=== PATIENT | female | born 1980 | race Caucasian/White ===

== ENCOUNTER 2020-06-09 07:14 | Inpatient (IN) | payer OTHER, SELFPAY ==
[2020-06-02 09:31] VITALS: BMI 35.4
[2020-06-09] VITALS (11 sets, daily range): BP systolic 124–149; BP diastolic 63–95; PULSE 74–99; RESP 9–18; TEMP 36.1–37.3; O2SAT 89–98; BMI 34.7
--- NOTE | 2020-06-09 | DI.RAD.S_ITS ---
PROCEDURE: XR CERVICAL SPINE 2V OR 3V INDICATIONS: ACDF C5-6 C6-7 TECHNIQUE: 3 views of the cervical spine were acquired. COMPARISON: Outside Film, MR, MR CERVICAL SPINE WITHOUT CONTRAST, 04/08/2020, 8:39. FINDINGS: Bones: Intraoperative spot images demonstrate anterior cervical fixation hardware at the C5 through C7 levels. Soft tissues: No prevertebral soft tissue swelling. An endotracheal tube is partially imaged. IMPRESSION: Intraoperative images demonstrate cervical fixation hardware at the C5 through C7 levels. Dictated by: Jerman Lobo M.D. on 06/09/2020 at 12:06 Approved by: Jerman Lobo M.D. on 06/09/2020 at 12:08
[2020-06-09] MEDS: ACETAMINOPHEN 325 MG TABLET 975 MG PO (08:09)
[2020-06-09] MEDS: SCOPOLAMINE 1 PATCH TOP (08:10)
[2020-06-09] MEDS: LACTATED RINGERS 1,000 ML 42 ML IV ×2 (08:18→10:44)
[2020-06-09] MEDS: CEFAZOLIN 2 GM/100 ML FROZ.PIGGY IV ×2 (08:55→17:17)
--- NOTE | 2020-06-09 09:30 | SUR.OPER ---
Supine, head on gel donut. Arms padded with gel pads, tucked at sides, towel roll under shoulders. Safety belt at thigh. Legs uncrossed.
--- NOTE | 2020-06-09 11:38 | P.OP_ITS ---
Operative Date/Time/Diagnoses Date of procedure: 06/09/20 Time of procedure: 08:38 Pre-op diagnosis: 1. C5-6, C6-7 spinal stenosis with radiculopathy 2. C5-6, C6-7 with spondylosis and radiculopathy Post-op diagnosis: same Procedure & Clinicians Procedure: 1. C5-6 C6-7 anterior cervical diskectomy and fusion 2. C5-6 C6-7 anterior interbody cage placement 3. C5-6 C6-7 anterior instrumentation with plate and screw placement in C5-C6 and C7 vertebrae 4. Utilization of microsurgical technique and operating microscope Same procedure as scheduled: Yes Indications: Patient has been having chronic neck pain and worsening cervical radiculopathy. Patient failed multiple conservative management with worsening pain weakness and numbness in her upper extremity. Patient has been having difficulty performing activity of daily living. After discussing risks benefits of treatment options, patient elected proceed with surgery. Surgeon: Bharati Vincent Paring Machine Operator: Ramonita Turner Click Yes if Unassisted: No Anesthesia Type: General Operative Notes Closure Type: primary Specimen(s): none sent Prosthetic devices, grafts, tissues, transplants, or devices: Globus Extend Plate, PEEK cages Estimated Blood Loss (mL): 50 Blood products transfused: none Procedure in detail: Patient was seen in the preoperative area. Risks and benefits of the surgery was discussed with the patient. Operative consent was obtained and placed in the chart. Patient was then taken to the operative room. Prophylactic antibiotic was given less than 0.5 hr prior to skin incision. General anesthesia was administered. Patient was placed into a supine position on her radiolucent table. Bilateral shoulders were taped down to allow proper C- arm imaging. Anterior cervical area was prepped and draped in a sterile fashion. Time-out was performed at this time. Using lateral C-arm imaging, the level between C5 and C7 was identified and marked on patient's neck. A oblique incision from midline towards medial border of sternocleidomastoid muscle was made. The platysma muscle was incised in line with skin incision. Metzenbaum scissor was used to develop the plane between the medial border of sternocleidomastoid d and the strap muscles medially. The cabrales tid sheath and its contents were identified and protected behind the hand-held retractor during the entire case. The plane between the carotid sheath and strap muscles was developed with Metzenbaum scissors. Dissection was made down to the level of the anterior cervical fascia. Longus colli muscle was incised on the anterior aspect of vertebral bodies bilaterally from C5-C7. Spinal needle was placed into the C5-6 disc space and confirmed with lateral C-arm imaging. Using microsurgical technique and operative microscope, anterior cervical diskectomy was performed at C5-6 and C6-7 level. This was done by removing the disc material, removing the anterior and posterior osteophytes posterior longitudinal ligaments along with performing bilateral foraminotomies at both levels. Patient was found to have severe central and foraminal stenosis at both levels. Patient's stenosis was fully decompressed after decompression was completed. There was extruded disc fragments at both levels on the right side into the neural foramen. The fragments was removed using the pituitary micro curette. After dissecting this completed the neural foramen was palpated and no other impinging structure was identified. After the diskectomy was completed, 2 anterior interbody cages were obtained. The cages were packed with DBM bone grafting material. One cage each along with the bone grafting material was then packed into the interbody spaces from C5-C7 with one cage into each interbody level. After the cages were placed, the anterior cervical plate was stabilized to the C5-C7 vertebrae using 2 screws at each each level. Total 6 screws were placed. After confirming placement of the hardware with AP and lateral C-arm imaging, the screws were locked into the plate using the locking mechanism and torque limiting screwdriver. After the hardware was placed and confirmed with AP and lateral C-arm imaging, the wound was irrigated with sterile normal saline. The platysma muscle and the subcutaneous tissue was closed with 2-0 Vicryl. The skin was closed with 4-0 Monocryl and Steri-Strips. Patient tolerated the procedure well. Patient was transferred recovery room in stable condition. There were no complications. Complications: none Post-operative Condition: stable Disposition: PACU Plan for aftercare: Admit to inpatient hospital
[2020-06-09] MEDS: OXYCODONE IR 5 MG TABLET PO (12:04)
[2020-06-09] MEDS: hydrOXYzine pamoate 25 MG CAPSULE PO (13:21)
[2020-06-09] MEDS: SODIUM CHLORIDE 0.9% 1,000 ML 100 ML IV (13:22)
--- NOTE | 2020-06-09 14:10 | PC.NURSE ---
Pt to room via bed from PACU - Pt is awake alert and oriented x 3. States she has a sore throat but is having no difficulty swallowing. Pt given a popsicle and ice chips and advanced to eating custard during admission process. Pt oriented to room, call light, tv controls and bed controls. Pt bed alarm on, IV infusing, and scd's on and running. Pt agrees to not get up without assistance. Pt denies needs at this time and agrees to call for assistance as needed.
--- NOTE | 2020-06-09 15:00 | PT.IIE ---
Current Diagnoses Other spondylosis with radiculopathy, cervical region (06/09/20) Spinal stenosis, cervical region (06/09/20) Surgery Performed Operation Date: 06/09/20 08:45 Actual Procedures p C5-6,C6-7 ACDF with anterior instrumentation - Bharati Vincent MD Surgical History (Last Updated 06/02/20 @ 10:10 by Carina Mcguire RN) History of carpal tunnel release of both wrists (Acute 04/2020) History of surgery (Acute 01/2019) Hx of section (Acute) Medical History (Last Updated 06/02/20 @ 10:10 by Carina Mcguire RN) Anxiety (Acute) Arthritis (Acute) Depression (Acute) Low back pain (Acute) Neck pain (Acute) Physical Therapy Inpatient Evaluation/Re-Eval M1 PT/OT-IP Prior Functional Status Start: 06/09/20 14:53 Freq: NEEDED Status: Active Protocol: Document 06/09/20 15:00 AB (Rec: 06/09/20 15:38 AB [id number]) Medical Review Prior Functional Status Medical History Reviewed Yes Communication able to make needs known Mobility and Gait stated that she is independent with all mobilities and ambulation without AD Social History Household Members spouse,children Living Arrangements House Number of Floors (Floors) 3 or More Floors Number of Stairs To Enter/Railing? 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 [id number]) Medical Review Prior Functional Status Medical History Reviewed Yes Communication Independent. Mobility and Gait Independent with no devices. Activities of Daily Living and IADL's Completely independent with no devices. Pt states due to her right UE athrophy of biceps/ triceps was harder to do IADl needs, even pushing a shopping hard was hard for her as her right arm would tire. Prior Functional Level (Other details) Pt's to take the week off to assist, pt has 3 boys 9 ,12, and 14 years old. Social History Household Members spouse,children Living Arrangements House Number of Floors (Floors) 3 or More Floors Number of Stairs To Enter/Railing? 1 step from the garage and no rails to enter the main level of kitchen and living room. Pt 's bedroom is up 2 flights of steps and right hand rails going up. Pt states is able to slepp on the couch on the main level if needed and also the recliner can be brought down to the main living area if needed. Home Environment Standard Height Toilet,Walk in Shower Home Equipment Hand Held Shower M2 PT-IP Current Condition Start: 06/09/20 14:53 Freq: NEEDED Status: Active Protocol: Document 06/09/20 15:00 AB (Rec: 06/09/20 15:38 AB [id number]) Physical Therapy Current Condition Current Condition Evaluation Date 06/09/20 Treatment Diagnosis s/p C5-6 C6-7 ACDF; difficulty in walking Onset Date 06/09/20 Precautions Cervical Spine Precautions Soft Collar for Comfort,No Heavy Lifting,Log Roll M3 PT-IP Subjective Start: 06/09/20 14:53 Freq: NEEDED Status: Active Protocol: Document 06/09/20 15:00 AB (Rec: 06/09/20 15:38 AB [email or web address]) Subjective Physical Therapy Visit Type Type Initial Evaluation Visit Start Time 15:00 Visit Stop Time 15:28 Total Visit Minutes 28 Number of RISK OFFICER Visits 0 Physical Therapy Visit Comments Patient Comments pt is agreeable to do PT Therapy Pain Assessment Pain Present Pain Present Denied Pain M4 PT-IP Mobility and Gait Start: 06/09/20 14:53 Freq: NEEDED Status: Active Protocol: Document 06/09/20 15:00 AB (Rec: 06/09/20 15:38 AB [id number]) PT-Bed Mobility Assessment Rolling Type of Rolling Log Rolling Level of Assist Standby Assistance Supine to Sit Supine to Sit Standby Assistance Sit to Supine Sit to Supine Standby Assistance Scooting Scooting to Edge of Bed Standby Assistance PT-Transfer Assessment Sit to and From Stand Sit to and from Stand Standby Assistance Equipment Transfer Assistive Device None,Gait Belt Orthotic/Prosthetic Devices or Brace: Yes Transfers Transfer Destination Bed,Chair Transfer Technique ambulated without AD Transfer Ability Level of Assist Standby Assistance Comments Mobility Comments reviewed cervical precautions and log roll bed mobility with pt. pt completed sit to stand from chair SBA and transferred to bed without AD SBA. completed bed mobility SBA. ambulated in room without AD ~ 30 ft SBA. pt sat back on the chair. positioned on chair. call light and table placed within reach. Gait Assessment Gait Gait Assistance Required: Standby Assistance Distance (Feet) 30 Able to Maintain Weight Bearing Status Yes During Gait Assistive Devices Assistive Device Gait Belt,Front Wheeled Walker Orthotic/Prosthetic Devices or Brace: No Factors Limiting Gait Function Factors Limiting Gait Function Decreased Activity Tolerance, Limited Range of Motion PT-Balance Assessment Sitting Balance and Reactions Static Sitting Balance Ability Normal Dynamic Sitting Balance Ability Normal Standing Balance and Reactions Static Standing Balance Ability Good Dynamic Standing Balance Ability Good Device Used without AD M5 PT-IP Objective Assessments Start: 06/09/20 14:53 Freq: NEEDED Status: Active Protocol: Document 06/09/20 15:00 AB (Rec: 06/09/20 15:38 [email or web address]) Orientation Orientation/Cognition Level of Alertness Alert Orientation Name,Age,Birthday,Month,Date, Year,Day of Week,Place, Situation Language Function Ability No Deficits Noted Safety Awareness Understands Safety Issues Memory Description No Deficits Noted Gross Range of Motion Lower Extremity ROM Assessment Within Functional Limits Strength Lower Extremity Strength Assessment Within Functional Limits Coordination Assessment Gross Coordination Gross Coordination WNL Muscle Tone Muscle Tone WNL Yes M6 PT-IP Treatment Start: 06/09/20 14:53 Freq: NEEDED Status: Active Protocol: Document 06/09/20 15:00 AB (Rec: 06/09/20 15:38 [email or web address]) Physical Therapy Treatment Education Education Provided Precautions,Safety M7 PT-IP Assessment and Plan Start: 06/09/20 14:53 Freq: NEEDED Status: Active Protocol: Document 06/09/20 15:00 AB (Rec: 06/09/20 15:38 [email or web address]) PT Summary Assessment and Plan Potential Rehabilitation Potential Good Status of Condition at Evaluation Stable Summary Impairments Pain,Balance,Bed Mobility, Transfers,Gait,Activity Tolerance Assessment Summary pt s/p ACDF and just had surgery this morning. pt requiring SBA with mobility and plans to go home with spouse to assist her. will conduct stair climbing training prior to d/c. pt may go home when medically stable . Goals Bed Mobility Goal Independent Transfer Goal Independent Gait Goal Independent Gait Distance 300 Other Goals up/down 12 step R rail ascending Frequency of Treatment Frequency Of Treatment Twice a Day Treatment Plan Physical Therapy Treatment Plan Bed Mobility Training,Transfer Training,Gait Training, Therapeutic Exercise,Balance Retraining,Post Op Education, Discharge Planning,Hot or Cold Pack,Neuromuscular Re-ed, Coordination Retraining,Manual Therapy Recommendations To Nursing Amount of Assist Needed Standby Assistance Discharge Recommendations PT Discharge Recommendations Home with Assistance Transportation Needs at Discharge Private Vehicle
--- NOTE | 2020-06-09 15:16 | OT.IP.EVAL ---
Current Diagnoses Other spondylosis with radiculopathy, cervical region (06/09/20) Spinal stenosis, cervical region (06/09/20) Surgery Performed Operation Date: 06/09/20 08:45 Actual Procedures p C5-6,C6-7 ACDF with anterior instrumentation - Bharati Vincent MD Past Medical History (Last Updated 06/02/20 @ 10:10 by Carina Mcguire RN) Anxiety (Acute) Arthritis (Acute) Depression (Acute) Low back pain (Acute) Neck pain (Acute) Surgical History (Last Updated 06/02/20 @ 10:10 by Carina Mcguire RN) History of carpal tunnel release of both wrists (Acute 04/2020) History of surgery (Acute 01/2019) Hx of section (Acute) Occupational Therapy Inpatient Evaluation/Re-Eval sunday and then back to work M1 PT/OT-IP Prior Functional Status Start: 06/09/20 15:19 Freq: NEEDED Status: Active Protocol: Document 06/09/20 15:19 CCC (Rec: 06/09/20 15:37 [facility] [email or web address]) Medical Review Prior Functional Status Medical History Reviewed Yes Communication Independent. Mobility and Gait Independent with no devices. Activities of Daily Living and IADL's Completely independent with no devices. Pt states due to her right UE athrophy of biceps/ triceps was harder to do IADl needs, even pushing a shopping hard was hard for her as her right arm would tire. Prior Functional Level (Other details) Pt's to take the week off to assist, pt has 3 boys 9 ,12, and 14 years old. Social History Household Members spouse,children Living Arrangements House Number of Floors (Floors) 3 or More Floors Number of Stairs To Enter/Railing? 1 step from the garage and no rails to enter the main level of kitchen and living room. Pt 's bedroom is up 2 flights of steps and right hand rails going up. Pt states is able to sleep on the couch on the main level if needed and also the recliner can be brought down to the main living area if needed. Home Environment Standard Height Toilet,Walk in Shower Home Equipment Hand Held Shower M2 OT-IP Current Condition Start: 06/09/20 15:19 Freq: Status: Active Protocol: Document 06/09/20 15:19 CCC (Rec: 10/21/20 15:37 [facility] [email or web address]) Occupational Therapy Current Condition Current Condition Evaluation Date 06/09/20 Treatment Diagnosis S/P C5-6, C6-7 ACDF Post Operative Precautions Cervical Spine Precautions Soft Collar for Comfort,No Heavy Lifting,Log Roll M3 OT- IP Subjective and Pain Start: 06/09/20 15:19 Freq: Status: Active Protocol: Document 06/09/20 15:19 [facility] (Rec: 06/09/20 15:37 [facility] [email or web address]) OT- Subjective Occupational Therapy Visit Type Type Initial Evaluation Visit Start Time 14:28 Visit Stop Time 15:16 Total Visit Minutes 48 Occupational Therapy Visit Comments Patient Comments Pt agreed to get up and pt's present for OT eval. Patient/Caregiver Goals TO go home. OT Pain Assessment Pain When Pain Assessed At Rest Pain Present Pain Present Pain Reported Location Anterior Neck Intensity 6 Scale Used Numeric (0 - 10) M4 OT- IP ADL's Start: 06/09/20 15:19 Freq: Status: Active Protocol: Document 06/09/20 15:19 [facility] (Rec: 06/09/20 15:37 [facility] [id number]) OT [id number] Comments OT Self-Feeding Comments Not at meal time, able to go over swallowing information and positioning needs after ACDF. Encouraged pt to eat softer food initially, cold food can be helpful, and be sure to sit upright and chew her food thoroughly. OT ADL-Grooming General Evaluation Areas Needing Assistance Retrieving/Set-up of Grooming Items OT ADL-Oral Care General Eval Oral Care Ability Standby Assistance Areas of Assistance Retrieving/Set-Up of Items Comments Oral Care Comments VC to lean at her hips to spit into the sink of just spit in to a cup to best follow her cervical precautions. OT ADL-Dressing General Eval Lower Body Dressing Ability Standby Assistance Areas Needing Assistance Retrieving/Set-up of Clothing Comments OT Dressing Comments Pt able to safely devonte underwear and socks by crossing her legs over without excessive movement of her head. OT ADL-Toileting Comments OT Toileting Comments Pt able to demonstrate being able to wipe appropriately. Suggested may be helpful to ear pads at night. OT ADL-Bathing Comments OT Bathing Comments To try tomorrow. Pt has a built in seat in her shower but mainly uses in to shave her legs with her foot prompt up on the built in seat. M5 OT- IP IADL's Start: 06/09/20 15:19 Freq: Status: Active Protocol: Document 06/09/20 15:19 [facility] (Rec: 06/09/20 15:37 [facility] [email or web address]) OT-Instrumental Activities of Daily Living Home Safety Awareness Awareness of Need for Assistance at Home Good Awareness Ability to Problem Solve Emergency Able to Problem Solve Situations Medication Management Medication Management No Deficits Identified Money Management Money Management No Deficits Identified Meal Preparation Meal Preparation Comments Pt's and kids to assist as needed. 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 M6 OT- IP Functional Cognition Start: 06/09/20 15:19 Freq: Status: Active Protocol: Document 06/09/20 15:19 [facility] (Rec: 06/09/20 15:37 [facility] [email or web address]) Cognitive Factors Limiting Selfcare Function Cognitive Ability Level of Alertness Alert Patient Orientation Name,Age,Birthday,Month,Date, Year,Day of Week,Place, Situation Attention Span Ability Capable of Focused Attention, Capable of Sustained Attention Ability to Follow Commands Able to Follow Multi-Step Commands Memory Description No Deficits Noted Safety Awareness No Deficits Noted Problem Solving Ability No deficits Noted Cognitive Comments Cognitive Assessment Comments NO cognitive deficits noted at this time. OT- Vision and Hearing OT- Hearing Assessment OT- Hearing Assessment WFL OT- Vision Assessment Visual Acuity WFL,Glasses For Reading M7 OT- IP Mobility and Balance Start: 06/09/20 15:19 Freq: Status: Active Protocol: Document 06/09/20 15:19 [facility] (Rec: 06/09/20 15:37 [facility] [email or web address]) OT- Bed Mobility Assessment Rolling Type of Rolling Roll to Right Supine to Sit Supine to Sit Assist Contact Guard Assistance,1 Person Assistance OT-Transfer Assessment Sit to and From Stand Sit to and from Stand Contact Guard Assistance Transfers Transfer Ability Standby Assistance,Contact Guard Assistance Technique Transfer Destination Bed,Chair,Toilet Transfer Technique Stand Step Pivot Devices Transfer Assistive Devices None,Gait Belt Comments Mobility Comments CGA assist and after initial education for log rolling to get up to the edge of the bed. CGA to stand and eventually pt able to walk from the bathroom to the recliner with SBA and no device used. Did still recommend pt still use the call light to ask for assistance as just had surgery this morning. OT- Gait Assessment Gait Gait Assistance Required: Standby Assistance,Contact Guard Assist Comments Gait Ability Comments CGA to SBA with gait belt. OT- Balance Assessment Sitting Balance and Reactions Static Sitting Balance Ability Normal Dynamic Sitting Balance Ability Normal Standing Balance and Reactions Static Standing Balance Ability Normal M8 OT- IP Objective Assessments Start: 06/09/20 15:19 Freq: Status: Active Protocol: Document 06/09/20 15:19 [facility] (Rec: 06/09/20 15:37 [facility] [email or web address]) OT Gross Range of Motion Upper Extremity Range of Motion Assessment Within Functional Limits OT Strength Upper Extremity Strength Assessment Right Impaired OT-Muscle Tone Assessment Muscle Tone WNL Yes M9 OT- IP Assessment and Plan Start: 06/09/20 15:19 Freq: Status: Active Protocol: Document 06/09/20 15:19 [facility] (Rec: 06/09/20 15:37 [facility] [email or web address]) OT Summary Assessment and Plan Potential Rehabilitation Potential Excellent Analytic Complexity at Evaluation Low Summary OT Impairments Functional Mobility,Dressing, Toileting,Bathing Progress Towards Goals Progressing Toward Goals Assessment Summary Pt low complexity and main barriers are multiple steps at home, pain , and now needing one person assist for Adl and mobility needs. Pt has a supportive and has the option to sleep downstairs on the main level if needed. Pt looking to go home with medically stable. OT to go over shower and dressing tomorrow with pt and . Goals Grooming Goal Independent Dressing Goal Independent Toileting Goal Independent Bathing Goal Independent Toilet Transfer Goal Independent Shower Transfer Goal Independent Patient/Caregiver Education Goal Caregiver Independent Assisting Patient Days to Meet Goals 2 Frequency of Treatment Frequency Of Treatment Once a Day Treatment Plan OT Treatment Plan ADL Training,Functional Mobility,Patient/Family Education,Discharge Planning Other Treatment Recommendations and Next Shower, caregiver training Treatment Focus Discharge Recommendations OT Discharge Recommendations Home with Assistance Transportation Needs at Discharge Private Vehicle
[2020-06-09] MEDS: ACETAMINOPHEN 325 MG TABLET 650 MG PO (16:01)
[2020-06-09] MEDS: OXYCODONE IR 10 MG TABLET PO ×3 (16:01→23:17)
[2020-06-09] MEDS: GABAPENTIN 600 MG TABLET 1200 MG PO (19:44)
[2020-06-09] MEDS: CITALOPRAM 10 MG TABLET 20 MG PO (19:44)
[2020-06-09] MEDS: DOCUSATE 100 MG CAPSULE PO (19:44)
[2020-06-10 00:19] VITALS: BP 133/82; PULSE 80; RESP 16; TEMP 36.7; O2SAT 96
[2020-06-10] MEDS: SODIUM CHLORIDE 0.9% 1,000 ML 100 ML IV (00:34)
[2020-06-10] MEDS: CEFAZOLIN 2 GM/100 ML FROZ.PIGGY IV (00:34)
--- NOTE | 2020-06-10 00:51 | PC.NURSE ---
Addendum entered by Esther Lane R.N. 06/10/20 06:47: States pain in throat is 8/10, pain in posterior neck is 7/10 and bilateral shoulder pain is 5/10; medicated with Oxycodone and ice packs applied. Original Note: [id number] patient seen and assessed. Is alert and oriented. Breath sounds CTA with RA sat of 96%. HRR. Complains of sore throat but denies dysphagia. Also complains of bilateral shoulder pain; throbbing so medicated with Oxycodone and ice packs applied. Denies nausea. BT present and is passing flatus. Denies dysuria, frequency or urgency with urination. Moves herself in bed and is up to bathroom with SBA. Dressing to anterior neck is CDI; wearing soft collar for comfort. Wearing bilateral calf SCD's. Fall risk score is low.
[2020-06-10] MEDS: OXYCODONE IR 10 MG TABLET PO ×4 (03:38→11:54)
[2020-06-10 04:00] VITALS: BP 133/76; PULSE 78; RESP 16; TEMP 36.8; O2SAT 94
--- NOTE | 2020-06-10 07:36 | P.PN_ITS ---
Subjective Subjective Date Patient Seen: 06/10/20 Time Patient Seen: 07:36 Interval history: Patient is POD#1 s/p ACDF with Dr. Vincent. Some issues with pain control overnight, but oxycodone is helping. Does complain of significant sore throat but has tolerated liquids and some food and denies any difficulty breathing. No shortness of breath or chest pain. Exam Vital Signs (past 8 hours): - 06/10/20 00:19 06/10/20 04:00 Temperature 98.1 F 98.3 F Pulse Rate 80 78 Respiratory Rate 16 16 Blood Pressure 133/82 133/76 Pulse Oximetry 96 94 Oxygen Delivery Method Room Air Oxygen Flow Rate 0 Narrative Exam Narrative: 39 year old female resting in bed alert and oriented in no acute distress. Dressing in place is CDI. Patient wearing soft collar. 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 Sensation intact in B/L UE. Assessment & Plan Assessment & Plan narrative: Patient doing well postoperatively. Cepacol lozenges added for sore throat which is due to surgical positioning. Continue present pain control. She is to work with PT today. Likely discharge to home later today. Quality VTE Deep Vein Thrombosis/Pulmonary Embolism Present on Admission: No
[2020-06-10] MEDS: BENZOCAINE/MENTHOL 1 LOZ PKT 1 EACH PO ×2 (07:38→09:35)
[2020-06-10 07:55] VITALS: BP 136/82; RESP 19; TEMP 37.1; O2SAT 93
[2020-06-10] MEDS: DOCUSATE 100 MG CAPSULE PO (08:44)
[2020-06-10] MEDS: INFLUENZA VACCINE 0.5 ML SYRINGE IM (08:45)
--- NOTE | 2020-06-10 09:10 | OT.IPNOTE ---
Pt doing well and pt and have no further questions or concerns for OT needs and looking to go home today. NO charge.
--- NOTE | 2020-06-10 10:10 | PT.IPTN ---
Current Diagnoses Other spondylosis with radiculopathy, cervical region (06/09/20) Spinal stenosis, cervical region (06/09/20) Surgery Performed Operation Date: 06/09/20 08:45 Actual Procedures p C5-6,C6-7 ACDF with anterior instrumentation - Bharati Vincent MD Physical Therapy Treatment Note M2 PT-IP Current Condition Start: 06/09/20 14:53 Freq: NEEDED Status: Active Protocol: Document 06/09/20 15:00 AB (Rec: 06/09/20 15:38 AB [email or web address]) Physical Therapy Current Condition Current Condition Evaluation Date 06/09/20 Treatment Diagnosis s/p C5-6 C6-7 ACDF; difficulty in walking Onset Date 06/09/20 Precautions Cervical Spine Precautions Soft Collar for Comfort,No Heavy Lifting,Log Roll M3 PT-IP Subjective Start: 06/09/20 14:53 Freq: NEEDED Status: Active Protocol: Document 06/10/20 09:47 KS (Rec: 06/10/20 10:47 KS [id number]) Subjective Physical Therapy Visit Type Type Treatment Note Visit Start Time 09:47 Visit Stop Time 10:10 Total Visit Minutes 23 Number of PUBLIC WEIGHER Visits 1 Physical Therapy Visit Comments Patient Comments pt is agreeable to do PT. Pts present during treatment. M4 PT-IP Mobility and Gait Start: 06/09/20 14:53 Freq: NEEDED Status: Active Protocol: Document 06/10/20 09:47 KS (Rec: 06/10/20 10:47 KS [id number]) PT-Bed Mobility Assessment Rolling Type of Rolling Log Rolling Level of Assist Standby Assistance Supine to Sit Supine to Sit Standby Assistance Sit to Supine Sit to Supine Standby Assistance Scooting Scooting to Edge of Bed Standby Assistance PT-Transfer Assessment Sit to and From Stand Sit to and from Stand Contact Guard Assistance Equipment Transfer Assistive Device None,Gait Belt Orthotic/Prosthetic Devices or Brace: Yes Transfers Transfer Destination Bed Transfer Technique ambulated without AD Transfer Ability Level of Assist Standby Assistance,Contact Guard Assistance Comments Mobility Comments Pt in bed upon arrival from therapy. SBA for logroll to L and sidelying<>sit as well as sit<>stand w/o AD. Pts correctly applied gait belt. Pt then ambulated to stairs and ascended/descended 3 steps x4 w/ R rail ascending and step over step pattern. Pt then ambulated back to room SBA w/ decreased stride and foot clearance3 and then performed logroll back into bed w/ cues for spinal alignment. Pt and have no further questions regarding PT and feel safe to return home. Gait Assessment Gait Gait Assistance Required: Standby Assistance,Contact Guard Assist Distance (Feet) 200 Able to Maintain Weight Bearing Status Yes During Gait Assistive Devices Assistive Device Gait Belt Orthotic/Prosthetic Devices or Brace: No Gait Deviations General Gait Pattern Decreased Stride Length, Decreased Feet Clearance Factors Limiting Gait Function Factors Limiting Gait Function Decreased Activity Tolerance, Limited Range of Motion Comments Gait Comments Please refer to mobility section for details Stair Climbing Assessment Evaluation Level of Assist On Stairs Standby Assistance,1 Person Assistance Devices Stair Climbing Assistive Devices Right Railing Technique/Endurance Stair Climbing Direction Ascend and Descend Stair Climbing Technique Step Over Step Number of Steps Climbed 3 Stair Climbing Set # Repetitions (reps) 4 Comments Stair Climbing Comments Pt ascended/descended 12 total steps w/ R rail ascending and step over step pattern SBA. Pt states she feels safe to complete steps at home. PT-Balance Assessment Sitting Balance and Reactions Static Sitting Balance Ability Normal Dynamic Sitting Balance Ability Normal Standing Balance and Reactions Static Standing Balance Ability Good Dynamic Standing Balance Ability Good Device Used without AD M5 PT-IP Objective Assessments Start: 06/09/20 14:53 Freq: NEEDED Status: Active Protocol: Document 06/09/20 15:00 AB (Rec: 06/09/20 15:38 AB [id number]) Orientation Orientation/Cognition Level of Alertness Alert Orientation Name,Age,Birthday,Month,Date, Year,Day of Week,Place, Situation Language Function Ability No Deficits Noted Safety Awareness Understands Safety Issues Memory Description No Deficits Noted Gross Range of Motion Lower Extremity ROM Assessment Within Functional Limits Strength Lower Extremity Strength Assessment Within Functional Limits Coordination Assessment Gross Coordination Gross Coordination WNL Muscle Tone Muscle Tone WNL Yes M6 PT-IP Treatment Start: 06/09/20 14:53 Freq: NEEDED Status: Active Protocol: Document 06/10/20 09:47 KS (Rec: 06/10/20 10:47 KS [id number]) Physical Therapy Treatment Education Education Provided Precautions,Safety M7 PT-IP Assessment and Plan Start: 06/09/20 14:53 Freq: NEEDED Status: Active Protocol: Document 06/10/20 09:47 HI (Rec: 06/10/20 10:47 KS [id number]) PT Summary Assessment and Plan Potential Rehabilitation Potential Good Status of Condition at Evaluation Stable Summary Impairments Pain,Balance,Bed Mobility, Transfers,Gait,Activity Tolerance Progress Towards Goals Progressing Toward Goals Assessment Summary Pt SBA for all mobility, transfers, ambulation, and stair training. Pt ambulated ~ 200 ft w/o AD and ascended/ descended 12 total steps w/ R rail ascending and step over step pattern. Instructed pts on gait belt application and guarding pt on stairs. Reveiwed precautions and importance of logroll. Pt and state they feel safe to return home and pt may go home when medically stable . Goals Bed Mobility Goal Independent Transfer Goal Independent Gait Goal Independent Gait Distance 300 Other Goals up/down 12 step R rail ascending Frequency of Treatment Frequency Of Treatment Twice a Day Treatment Plan Physical Therapy Treatment Plan Bed Mobility Training,Transfer Training,Gait Training, Therapeutic Exercise,Balance Retraining,Post Op Education, Discharge Planning,Hot or Cold Pack,Neuromuscular Re-ed, Coordination Retraining,Manual Therapy Recommendations To Nursing Amount of Assist Needed Standby Assistance Discharge Recommendations PT Discharge Recommendations Home with Assistance Transportation Needs at Discharge Private Vehicle
--- NOTE | 2020-06-10 10:26 | CM.DANOTE ---
Addendum entered by Charu Rod LPN 06/10/20 10:35: A check in now shows that pt has successfully done stairs with PT and is getting ready to leave for home in company of family. Original Note: Discharge Planning/Care Management DCP: assessment: case received, EMR reviewed. Discussed in Team Rounds. Pt is a 39 year old female who admitted yesterday for a scheduled spinal/cervical surgery. Surgeon: Dr. Vincent. A d/c to home order is noted. Payer: [facility] Pre-op d/c plan noted: home with family support. PERSONAL INJURY PARALEGAL Jane noted in Team Rounds that pt was doing very well but would do stair training today before she d/c'd. P: home today. Will check in with pt and follow accordingly. CM Discharge Assessment Start: 06/10/20 10:21 Freq: Status: Active Protocol: Document 06/10/20 10:21 ITV (Rec: 06/10/20 10:21 ITV [id number]) Discharge Planning Assessment Advance Directives? No History Provided By Medical Record Prior Living Arrangements House Household Members spouse,children Is patient alert and oriented? Yes Document 06/10/20 10:26 ITV (Rec: 06/10/20 10:26 ITV [id number]) Discharge Planning Assessment Advance Directives? No History Provided By Medical Record Prior Living Arrangements House Household Members spouse,children Is patient alert and oriented? Yes Pre-Anesthesia Assessment Start: 06/02/20 09:31 Freq: Status: Complete Protocol: Document 06/02/20 09:31 CAB (Rec: 06/02/20 10:24 CAB [id number]) Pre-Anesthesia Assessment Preferred Name Shira Patient Information Reviewed Via Phone Assessment Assessment Completed With Patient Comment Labs done per pt, not available, [facility] 06[facility]20 Primary Care Provider Sindy Anand Seen Specialist in Last 12 Months Yes Specialist Seen Orthopedist Primary Language Yoruba Personnel Supervisor Required No Height 175.26 cm Weight 108.862 kg Body Mass Index (BMI) 35.4 Hearing Ability Normal Visual Assist None Dentition Type Teeth, Natural Present Barriers to Learning None Hx Anesthesia Reactions No Hx Family Anesthesia Reaction No Hx Malignant Hyperthermia No Hx Blood Transfusions No Anesthesia Review Requested No alcohol intake current alcohol intake frequency a few times a week Smoking Status Former smoker Tobacco type cigarettes how long ago did patient quit smoking Quit approx 18 years ago Substance Use Type does not use Pain Present Pain Reported Musculoskeletal Symptoms Abnormal Gait,Back Pain,Joint Pain,Limited Range of Motion, Neck Pain,Radiating Pain into Limb History of Falling (Recent or History of No ) Patient is completely paralyzed or No completely immobile Mental Status Oriented to own ability Is patient on oxygen? No Does patient have GUTIERREZ/SOB No Hx Sleep Apnea No Currently Taking a Beta Christiano No Can You Climb a Flight of Stairs Without Yes SOB Hx Chest Pain No Hx SOB No Hx Syncope or Dizziness No Anti-Coagulant Therapy No Has a Family Law Paralegal No Cardiac Testing No Hx Pacemaker/ICD No Pacemaker Rep Required? No Cardiac Clearance Received Not Applicable Diet Type At Home Regular dysphagia No Urinary Catheter Present No Hx Urinary Self Catheterization No Diabetes No Patient No Lactating No Hx Drug Resistant Organism No Presence of External or Internal Medical No Devices Have you had any close contact with No someone diagnosed with COVID-19? Marital Status Lives With spouse,children Prior Living Arrangements House Number of Floors (Floors) 3 or More Floors Support System Child/Children,Spouse Does the Patient Have Assistance After Yes Surgery Patient Discharge Plan Description Return Home Additional comment Pt advised 1 night length of stay per surgeon Feels Safe in Current Environment Yes Been Physically Hurt or Threatened By a No Person in Current Environment Do you have thoughts of harming yourself None or others? Are you currently considering suicide? No Do you have a plan to hurt yourself or No Plan others? Do You Have Any Spiritual Beliefs That No May Affect Your HC Choices? Do You Have Any Cultural Practices That No May Affect Your HC Choices? Comment Baptism Who Can We Speak to About Patient's Care Family, friends Identifying Code for Release of Patient Declines to issue Information Health Care Proxy/Next of Kin Jean Marie () Health Care Proxy Emergency Contact Name Erin (mom) Emergency Contact Advance Directives? No Power of Senior Java Web Developer No PAC Instructions Medications to take/avoid, Nasal antibiotic,No ETOH/ petroleum product on skin DOS, NPO,Post-op transportation,Pre -surgical wash,Sturdy shoes/ comfortable clothes,Do not bring valuables and remove jewelry
--- NOTE | 2020-06-10 10:33 | ST.IPSCREEN ---
Voice and swallow screening complete following ACDF procedure yesterday. Pt c/o sore throat and raspy voice. Educated pt that this was to be expected. Additionally discussed the need to contact her physician if she notices a change in either her voice or swallowing and or if there is no improvement. Written information provided for blue folder.
--- NOTE | 2020-06-10 13:35 | PC.NURSE ---
Day shift: Pt on unit from PACU at approx 1325. He is A&Ox3. Reports no pain in back but his left shoulder 4/. Agrees to not get OOB w/o help from staff. Bed alarm is on. Call light in reach. Oriented to room and call light. CMS OK. VS WNL. Instructed on I.S. use.
--- NOTE | 2020-06-10 13:37 | PC.NURSE ---
Day shift: Pt left unit at approx 1330. Paperwork signed and all questions answered. Pt got scripts filled here prior to driving to [place] w/ her spouse. Pt has all personal belongings. Instructed how to change dressing if needed after talking w/ [facility] people. CMS good. Medicated for pain rpior to drive home.
== END 2020-06-10 13:40 | disposition home or self-care (01) | DRG 473 ==
PROVIDERS: Admitting Provider Orthopaedic Surgery Orthopaedic Surgery of the Spine; PCP Family Medicine; Referring Provider Orthopaedic Surgery Orthopaedic Surgery of the Spine; Visit Provider Orthopaedic Surgery Orthopaedic Surgery of the Spine
PROC: 0RG20A0 Fusion of 2 or more Cervical Vertebral Joints with Interbody Fusion Device, Anterior Approach, Anterior Column, Open Approach (ICD-10-PCS; principal; 2020-06-09 08:45)
DX: M48.02 Spinal stenosis, cervical region (principal); M47.22 Other spondylosis with radiculopathy, cervical region; F32.9 Major depressive disorder, single episode, unspecified
CPT/HCPCS: 72040; 76000; 90471; 90656; 97116; 97161; 97165; 97530; 97535; C1776; J0330; J0690; J1170; J1200; J2250; J2405; J2704; J3010; Q2038